=== PATIENT | male | born 1975 | race Caucasian/White ===

== ENCOUNTER 2019-12-17 09:14 | Day surgery (SDC) | payer OTHER ==
[2019-12-17 09:07] LABS: Absolute Lymphocytes (CBC) 1.5 K/uL (0.7-4.9); Basophils % 0.8 % (0-1.3); Lymphocytes % 23.8 % (15.3-44.8); MPV 9.5 fL (7.6-11.3); RBC Red Blood Cell Count 5.26 M/uL (4.33-5.43)
[2019-12-17 09:18] LABS: Bilirubin Direct 0.2 mg/dL (0-0.2); Bilirubin Total 1.3 mg/dL (0.2-1.0); Potassium 4.1 mmol/L (3.5-5.1); Protein, Total 7.4 g/dL (6.4-8.2)
[2019-12-17] MEDS ORDERED: Ringers Lactate 1,000 ML IV ONE (09:51)
[2019-12-17] MEDS ORDERED: propofoL 200 MG/20 ML VIAL IV ONE (10:43)
[2019-12-17] MEDS ORDERED: LIDOCAINE 1% MPF 5 ML VIAL ONE (10:43)
[2019-12-17] MEDS ORDERED: FENTANYL CITR 100 MCG/2 ML ONE (10:43)
[2019-12-17] MEDS ORDERED: MIDAZOLAM HCL 2 MG/2 ML INJ ONE (10:43)
[2019-12-17] MEDS ORDERED: ROCURONIUM 50 MG/5 ML VIAL IV ONE (10:43)
[2019-12-17] MEDS: CEFOXITIN/SWI 1gm 1 GM/10 ML SYR ONE ×2 (10:49→11:00)
[2019-12-17] MEDS ORDERED: GLYCOPYRROLATE 0.2 MG/ML SYR ONE (11:26)
[2019-12-17] MEDS ORDERED: KETOROLAC 30 MG/ML INJ ONE (11:26)
--- NOTE | 2019-12-17 11:27 | RAD REPORT ---
EXAM DESCRIPTION: RAD - Chest Pa And Lat (2 Views) - 12/17/2019 8:24 am CLINICAL HISTORY: preop, pending cholecystectomy COMPARISON: No comparisons TECHNIQUE: Frontal and lateral views of the chest were obtained. FINDINGS: The lungs are clear. Heart size is normal and central vasculature is within normal limit s. No pleural effusion or pneumothorax seen. No acute bony finding noted. No aortic abnormality. IMPRESSION: No acute cardiopulmonary process.
[2019-12-17] MEDS ORDERED: NEOSTIGMINE 1 MG/ML -5 ML ONE (11:38)
[2019-12-17] MEDS ORDERED: ONDANSETRON 4 MG/2 ML VIAL ONE (11:38)
[2019-12-17] MEDS ORDERED: MORPHINE 10 MG/ML VIAL ONE (11:51)
--- NOTE | 2019-12-17 11:54 | P.BOP ---
Preoperative diagnosis: acute cholecystitis, symptomatic cholelithiasis Postoperative diagnosis: same Primary procedure: Lap cholecystectomy Estimated blood loss: <10cc Specimen: gb Findings: as above Anesthesia: General Complications: None Transferred to: Recovery Room Condition: Good
[2019-12-17 12:32] VITALS: O2SAT 96
[2019-12-17] MEDS ORDERED: CODEINE 30MG/APAP 300MG TAB ONE (12:54)
[2019-12-17 13:06] VITALS: BP 126/78; TEMP 96.2
--- NOTE | 2019-12-18 03:49 | OP ---
Date of Procedure: 12/17/2019 Surgeon: Derick Matamoros MD Preoperative Diagnoses: Acute cholecystitis, symptomatic cholelithiasis. Postoperative Diagnosis: Acute cholecystitis, symptomatic cholelithiasis. Procedure: Laparoscopic cholecystectomy. Anesthesia: General plus local. Indications: This is the case of a male, who comes to us with above diagnosis. Fully explained the benefits, alternatives, and risks of laparoscopic possible open cholecystectomy, which include, but n ot limited to infection, bleeding, damage to adjacent structures, anesthesia complications, choledoch olithiasis, bile leak, pancreatitis, MD, and even . He also understands this may not relieve an y symptoms, he might need more than one surgical intervention. He understood, signed the consent. Description Of Procedure: Patient was brought to the operating room, placed in supine position. Ane sthesia was done without complication. Abdominal area was prepped and draped in a sterile fashion. Marcaine 0.5% was injected for local anesthetic followed by sharp incision of the skin in the infraum bilical region. Incision was carried down to fascia, which was opened under direct vision. Peritone um was encountered, opened under direct vision. Vicryl #1 placed inside the fascia. Paola trocar w as carefully introduced. No bleeding was obtained. I placed 3 more trocars, 5 mm each one of them, in the right upper quadrant using direct visualization. This allowed me to visualize distended gallb ladder, this was deflated with aspiration under direct visualization. Needle was removed. After unique t, I placed a grasper in the fundus of the gallbladder, another grasper in the infundibulum, retracte d the gallbladder in the inferolateral fashion exposing the triangle of Calot, obtaining critical vie w. The cystic duct and cystic artery were clearly isolated, freed circumferentially and a connection between those and the gallbladder was clearly identified. I proceeded to ligate those by using at l east 3 clips proximal, 1 clip distal, ligation in middle. Same was done with the cystic artery. No bile leak. No bleeding. The gallbladder was removed from liver using the Bovie cauterizer and remov ed from abdominal cavity using an EndoCatch through the umbilical incision. The area was inspected o nce again. No bile leak. No bleeding. At that moment, I proceeded to remove the trocars under dire ct vision, deflated pneumoperitoneum, closed the fascia with #1 Vicryl. Irrigated subcutaneous tissu e closed down with 3-0 chromic and the skin with 3-0 chromic. Sponge count and instrument counts wer e correct. Patient tolerated the procedure well. Patient was sent to recovery in stable condition. MASTER/PRESTON Voice ID: [id number] Report ID: [id number]
--- NOTE | 2019-12-18 03:55 | DS ---
Date of Discharge: 12/17/2019 Diagnoses: Acute cholecystitis, symptomatic cholelithiasis. Procedure: Laparoscopic cholecystectomy. Disposition: Home. Activities: As tolerated. No heavy lifting. Followup: Follow up in my office in 1 week. Call for appointment, [phone]. Discharge Instructions: Keep the area dry for 48 hours, then may shower. Keep Steri-Strips intact. Medications: Include, Tylenol No. 3 q.4 hours p.r.n. pain, Bactrim DS p.o. b.i.d. MASTER/PRESTON Voice ID: [id number] Report ID: [id number]
== END 2019-12-17 14:19 | disposition home or self-care (01) ==
LOC: OR 09:14
PROVIDERS: ATTEND Surgery
PROC: 0FT44ZZ Resection of Gallbladder, Percutaneous Endoscopic Approach (ICD-10-PCS; principal; 2019-12-17 10:30)
DX: K80.12 Calculus of gallbladder with acute and chronic cholecystitis without obstruction (principal); Z88.6 Allergy status to analgesic agent; Z88.8 Allergy status to other drugs, medicaments and biological substances; Z82.49 Family history of ischemic heart disease and other diseases of the circulatory system
CPT/HCPCS: 85025; 80048; 36415; 82150; 80076; 88304; 83690; 71046; 47562; J2704; J2250; J3010; J7120; J2405; J2710

== ENCOUNTER 2021-09-06 15:15 | Emergency (ER) | payer OTHER, SELFPAY ==
[2021-09-06 16:33] LABS: Urine Blood 1+ (Negative); Urine Glucose Negative (Negative); Urine Protein Negative (Negative); Urine Specific Gravity 1.025 (1.005-1.030)
--- NOTE | 2021-09-06 17:02 | RAD REPORT ---
EXAM DESCRIPTION: CT - Stone Protocol - 09/06/2021 4:51 pm CLINICAL HISTORY: Flank pain. FLANK PAIN COMPARISON: No comparisons TECHNIQUE: Axial images were obtained without oral or IV contrast. Lack of contrast limits solid org an and vascular assessment. The [id number] spans the entirety of the system partially obscuring uppermost abdomen and lung bases. Coronal reformatted images were obtained and reviewed. All CT scans are performed using dose optimization technique as appropriate and may include automated exposure control or mA/KV adjustment according to patient size. FINDINGS: The lower lung kline are clear. Cholecystectomy clips. Imaged portions of the liver and spleen show no suspicious findings on non-contrast imaging. The panc reas and adrenal glands are normal. No pathologic lymphadenopathy in the abdomen or pelvis. No urinary tract stones or obstructive uropathy. No bowel obstruction, free air, free fluid or abscess. Normal appendix noted.Mild sigmoid diverticulo sis. No significant bony abnormality. IMPRESSION: No urinary tract stones or obstructive uropathy.
[2021-09-06 17:14] LABS: Urine Bacteria NONE SEEN /HPF (NONE SEEN); Urine Mucus 1+ /HPF (NONE SEEN)
[2021-09-06 17:54] LABS: Absolute Lymphocytes (CBC) 1.5 K/uL (0.7-4.9); Basophils % 0.4 % (0-1.3); Hematocrit 47.1 % (39.6-49.0); Lymphocytes % 15.8 % (15.3-44.8); RBC Red Blood Cell Count 5.51 M/uL (4.33-5.43)
--- NOTE | 2021-09-06 18:35 | EDPHYS ---
Physician Documentation [facility] Name: Arian Khan Age: 46 yrs Sex: Male : 1975 Arrival Date: 09/06/2021 Time: 15:16 Bed 20 Private MD: ED Physician Julio Cuellar HPI: 09/06 18:36 This 46 yrs old Male presents to ER via Ambulatory with complaints of kb Possible Kidney Stone. 18:36 The patient complains of pain in the right flank. The pain does not radiate. Onset: The kb symptoms/episode began/occurred just prior to arrival. Modifying factors: The symptoms are alleviated by nothing. the symptoms are aggravated by nothing. Associated signs and symptoms: The patient has no apparent associated signs or symptoms. Severity of pain: At its worst the pain was moderate in the emergency department the pain is unchanged. The patient has not experienced similar symptoms in the past. The patient has not recently seen a physician. Pt reports difficulty urinating and then dull progressing to sharp right flank pain. States he urinated when he got here and the pain went away. . Historical: - Allergies: 16:18 Tramadol HCl; ld1 16:18 CYCLOBENZAPRINE; ld1 - Home Meds: 16:18 None [Active]; ld1 - PMHx: 16:18 None; ld1 - PSHx: 16:18 Cholecystectomy; ld1 - Immunization history:: Adult Immunizations up to date, Client reports having NOT received the Covid vaccine. - Social history:: Smoking status: Patient denies any tobacco usage or history of. Patient uses alcohol, but reports only rare drinking. ROS: 18:36 Constitutional: Negative for fever, chills, and weight loss. kb 18:36 : Positive for flank pain, difficulty urinating. 18:36 All other systems are negative. Exam: 18:36 Constitutional: This is a well developed, well nourished patient who is awake, alert, kb and in no acute distress. Head/Face: Normocephalic, atraumatic. ENT: Moist Mucous membranes Respiratory: Respirations even and unlabored. No increased work of breathing, no retractions or nasal flaring. Abdomen/GI: Soft, non-tender. No distention Back: No spinal tenderness. No costovertebral tenderness. Full range of motion. Skin: Warm, dry with normal turgor. Normal color. MS/ Extremity: Pulses equal, no cyanosis. Neurovascular intact. Full, normal range of motion. Neuro: Awake and alert, GCS 15, oriented to person, place, time, and situation. Moves all extremities. Normal gait. Psych: Awake, alert, with orientation to person, place and time. Behavior, mood, and affect are within normal limits. Vital Signs: 16:16 BP 156 / 97; Pulse 69; Resp 18; Temp 97.8; Pulse Ox 99% on R/A; Weight 120.2 kg; Height ld1 5 ft. 9 in. (175.26 cm); Pain 1/10; 17:59 BP 149 / 97; Pulse 72; Resp 18; Temp 98.3(O); Pulse Ox 99% on R/A; sl2 16:16 Body Mass Index 39.13 (120.20 kg, 175.26 cm) ld1 MDM: 16:45 Patient medically screened. kb 18:33 Data reviewed: vital signs, nurses notes. Data interpreted: Pulse oximetry: on room air kb is 99 %. Interpretation: normal. Counseling: I had a detailed discussion with the patient and/or guardian regarding: the historical points, exam findings, and any diagnostic results supporting the discharge/admit diagnosis, lab results, radiology results, the need for outpatient follow up, a family practitioner, to return to the emergency department if symptoms worsen or persist or if there are any questions or concerns that arise at home. 09/06 16:30 Order name: Urine Microscopic Only; Complete Time: 17:15 kb 09/06 16:32 Order name: Urine Dipstick-Ancillary; Complete Time: 16:33 EDMS 09/06 16:30 Order name: Urine Dipstick-Ancillary (obtain specimen); Complete Time: 17:29 kb 09/06 16:30 Order name: CT Stone Protocol; Complete Time: 17:04 kb 09/06 17:05 Order name: Basic Metabolic Panel; Complete Time: 18:13 kb 09/06 17:05 Order name: CBC with Diff; Complete Time: 17:56 kb 09/06 17:05 Order name: Labs collected and sent kb Administered Medications: No medications were administered Disposition: 23:19 Co-signature as Attending Physician, Julio Cuellar MD I agree with the assessment and saman plan of care. Disposition Summary: 09/06/21 18:34 Discharge Ordered Location: Home kb Condition: Stable kb Diagnosis - Flank Pain kb Followup: kb - With: Emergency Department - When: As needed - Reason: Worsening of condition Followup: kb - With: Private Physician - When: 2 - 3 days - Reason: Recheck today's complaints, Continuance of care, Re-evaluation by your physician Discharge Instructions: - Discharge Summary Sheet kb - Flank Pain, Adult, [id number] kb Forms: - Medication Reconciliation Form kb - Thank You Letter kb - Antibiotic Education kb - Prescription Opioid Use kb Signatures: Dispatcher [employer] EDMS Donna Jimenez, GLASS BLOCK INSTALLER-C GLASS BLOCK INSTALLER-Ckb Julio Cuellar MD MD cha Dibbern, Lauren, RN RN ld1 Corrections: (The following items were deleted from the chart) 16:19 16:18 PMHx: Unable to Obtain; ld1 ld1 18:36 18:36 Constitutional: This is a well developed, well nourished patient who is awake, kb alert, and in no acute distress. Head/Face: Normocephalic, atraumatic. ENT: Moist Mucous membranes Respiratory: Respirations even and unlabored. No increased work of breathing, no retractions or nasal flaring. Abdomen/GI: Soft, non-tender. No distention Skin: Warm, dry with normal turgor. Normal color. MS/ Extremity: Pulses equal, no cyanosis. Neurovascular intact. Full, normal range of motion. Neuro: Awake and alert, GCS 15, oriented to person, place, time, and situation. Moves all extremities. Normal gait. Psych: Awake, alert, with orientation to person, place and time. Behavior, mood, and affect are within normal limits. kb
--- NOTE | 2021-09-06 18:35 | ER ---
Nurse's Notes [facility] Name: Arian Khan Age: 46 yrs Sex: Male : 1975 Arrival Date: 09/06/2021 Time: 15:16 Bed 20 Private MD: Diagnosis: Flank Pain Presentation: 09/06 16:16 Chief complaint: Patient states: Right flank pain began today at noon, shortly after it ld1 was intense pain. Frequent urge to urinate. Coronavirus screen: At this time, the client does not indicate any symptoms associated with coronavirus-19. Ebola Screen: No symptoms or risks identified at this time. Initial Sepsis Screen: Does the patient meet any 2 criteria? No. Patient's initial sepsis screen is negative. Does the patient have a suspected source of infection? No. Patient's initial sepsis screen is negative. Risk Assessment: Do you want to hurt yourself or someone else? Patient reports no desire to harm self or others. Onset of symptoms was September 06, 2021. 16:16 Method Of Arrival: Ambulatory ld1 16:16 Acuity: CHIRAG 3 ld1 Triage Assessment: 16:18 General: Appears in no apparent distress. comfortable, Behavior is calm, cooperative, ld1 appropriate for age. Pain: Complains of pain in right low back Pain does not radiate. Pain currently is 1 out of 10 on a pain scale. at worst was 10 out of 10 on a pain scale. Quality of pain is described as shooting, stabbing, Pain began 2 hours ago. Is intermittent. Neuro: Level of Consciousness is awake, alert, obeys commands, Oriented to person, place, time, situation. Cardiovascular: Capillary refill < 3 seconds Patient's skin is warm and dry. Respiratory: Airway is patent Respiratory effort is even, unlabored, Respiratory pattern is regular, symmetrical. GI: Abdomen is round non-distended. : Reports urgency, urinary frequency, Denies burning with urination. Historical: - Allergies: 16:18 Tramadol HCl; ld1 16:18 CYCLOBENZAPRINE; ld1 - Home Meds: 16:18 None [Active]; ld1 - PMHx: 16:18 None; ld1 - PSHx: 16:18 Cholecystectomy; ld1 - Immunization history:: Adult Immunizations up to date, Client reports having NOT received the Covid vaccine. - Social history:: Smoking status: Patient denies any tobacco usage or history of. Patient uses alcohol, but reports only rare drinking. Screenin:06 Abuse screen: Denies threats or abuse. Nutritional screening: No deficits noted. sl2 Tuberculosis screening: No symptoms or risk factors identified. Never had TB. Possible symptoms: None Risk factors: None. Fall Risk None identified. No fall in past 12 months (0 pts). No secondary diagnosis (0 pts). No IV (0 pts). Ambulatory Aid- None/Bed Rest/Nurse Assist (0 pts). Gait- Normal/Bed Rest/Wheelchair (0 pts) Mental Status- Oriented to own ability (0 pts). Assessment: 17:05 General: Appears in no apparent distress. obese, well groomed, well developed, Behavior sl2 is calm, cooperative. 17:05 Pain: Complains of pain in back and right low back Pain radiates to back, right groin sl2 Pain currently is 4 out of 10 on a pain scale. at worst was 10 out of 10 on a pain scale. Quality of pain is described as aching, sharp, Is continuous, Alleviated by nothing. Neuro: No deficits noted. Cardiovascular: No deficits noted. Respiratory: No deficits noted. Airway is patent Trachea midline Respiratory effort is even, unlabored, Respiratory pattern is regular, symmetrical, Breath sounds are clear bilaterally. GI: Bowel sounds present X 4 quads. Abd is soft and non tender X 4 quads. Abd is soft Reports right flank pain. : Reports Right flank pain. EENT: No deficits noted. Derm: No deficits noted. Musculoskeletal: No deficits noted. Vital Signs: 16:16 BP 156 / 97; Pulse 69; Resp 18; Temp 97.8; Pulse Ox 99% on R/A; Weight 120.2 kg; Height ld1 5 ft. 9 in. (175.26 cm); Pain 1/10; 17:59 BP 149 / 97; Pulse 72; Resp 18; Temp 98.3(O); Pulse Ox 99% on R/A; sl2 16:16 Body Mass Index 39.13 (120.20 kg, 175.26 cm) ld1 ED Course: 15:16 Patient arrived in ED. as 16:00 Donna Jimenez FNP-C is PHCP. kb 16:00 Julio Cuellar MD is Attending Physician. kb 16:09 Triage completed. ld1 16:18 Arm band placed on right wrist. ld1 16:52 CT Stone Protocol In Process Unspecified. EDMS 17:20 Iliana Sharma, RN is Primary Nurse. 2 17:29 CBC with Diff Sent. 5 17:29 Basic Metabolic Panel Sent. 5 17:30 Initial lab(s) drawn, by me, sent to lab. 5 19:06 No provider procedures requiring assistance completed. Patient did not have IV access sl2 during this emergency room visit. 19:07 Patient has correct armband on for positive identification. Call light in reach. sl2 Administered Medications: No medications were administered Outcome: 18:34 Discharge ordered by MD. kb 19:06 Discharged to home ambulatory. 2 19:06 Condition: stable 19:06 Discharge instructions given to patient, Instructed on discharge instructions, Demonstrated understanding of instructions. 19:07 Patient left the ED. sl2 Signatures: Dispatcher [employer] EDKS Donna Jimenez, FEEDER WORKER POWER UNIT OPERATOR-C FEEDER WORKER POWER UNIT OPERATOR-Dilcia Rey Maria 5 Eleni Hand, RN RN 1 Iliana Sharma, STEPHANE RN 2 Corrections: (The following items were deleted from the chart) 16:11 16:06 Chief complaint: Patient states: I went to see Dr. Hernandes, he sent me here ld1 because he said I could possibly have meningitis or an injured disc. I have been having neck stiffness \T\ neck pain. ld1 16: 16:06 Coronavirus screen: At this time, the client does not indicate any symptoms ld1 associated with coronavirus-19. ld1 16: 16:06 Ebola Screen: No symptoms or risks identified at this time. ld1 ld1 16:11 16:06 Initial Sepsis Screen: Does the patient meet any 2 criteria? No. Patient's ld1 initial sepsis screen is negative. Does the patient have a suspected source of infection? No. Patient's initial sepsis screen is negative. ld1 16:11 16:06 Risk Assessment: Do you want to hurt yourself or someone else? Patient reports no ld1 desire to harm self or others. ld1 16:11 16:06 Onset of symptoms was September 06, 2021 ld1 ld1 16: 16:06 Method Of Arrival: Ambulatory ld1 ld1 16:11 16:06 BP 176 / 101; Pulse 67bpm; Resp 18bpm; Pulse Ox 97% RA; Temp 98.1F Temporal; ld1 96.62 kg; Height 5 ft. 8 in.; BMI: 32.3; Pain 5/10; ld1 16: 16:06 Acuity: CHIRAG 3 ld1 ld1 16:19 16:18 PMHx: Unable to Obtain; ld1 ld1
[2021-09-06 19:11] VITALS: O2SAT 99
[2021-09-06 19:12] VITALS: BP 149/97; TEMP 98.3
== END 2021-09-06 19:07 | disposition home or self-care (01) ==
LOC: ER 15:15
DX: R10.9 Unspecified abdominal pain (principal); Z88.5 Allergy status to narcotic agent; Z88.8 Allergy status to other drugs, medicaments and biological substances
CPT/HCPCS: 36415; 74176; 76377; 80048; 81003; 81015; 85025; 99283